=== PATIENT | male | born 1975 | race American Indian/Alaskan Native ===

== ENCOUNTER 2016-07-17 01:35 | Observation (INO) | payer MEDICAID ==
[2016-07-17] MEDS ORDERED: DiphenhydrAMINE 50 mg/ml Inj IM STA (02:08)
[2016-07-17] MEDS ORDERED: DiphenhydrAMINE 50 mg/ml Inj ONE (02:12)
--- NOTE | 2016-07-17 02:25 | C.PDOC ---
History Of Present Illness 41 year old patient brought to the ED by ambulance for acute alcohol intoxication. Patient admits to drinking alcohol today, is angry and agitated on ED arrival. Time Seen by Provider: 07/17/16 01:43 Chief Complaint (Nursing): Substance Abuse History Per: Patient, EMS History/Exam Limitations: intoxication Onset/Duration Of Symptoms: Unknown Current Symptoms Are (Timing): Still Present Suicide/Self Injury Attempted (Context): None Modifying Factor(s): Alcohol Severity: Moderate Past Medical History Reviewed: Historical Data, Nursing Documentation, Vital Signs Vital Signs: Last Vital Signs Temp 97.2 F L 07/17/16 01:54 Pulse 80 07/17/16 06:05 Resp 16 07/17/16 06:05 BP 112/77 07/17/16 06:05 Pulse Ox 98 07/17/16 06:05 - Medical History PMH: No Chronic Diseases Family History: States: No Known Family Hx - Social History Hx Alcohol Use: Yes Hx Substance Use: (unobtainable) - Immunization History Hx Tetanus Toxoid Vaccination: (unobtainable) Hx Influenza Vaccination: (unobtainable) Hx Pneumococcal Vaccination: (unobtainable) Review Of Systems Review Of Systems: ROS cannot be obtained secondary to pt's inabilty to answer questions. (agitated, intoxicated) Constitutional: Positive for: Other (alcohol intoxication) Physical Exam - Physical Exam Appears: Non-toxic, Unkempt, Combative, Agitated Skin: Normal Color, Warm, Dry Head: Normacephalic Eye(s): right: Normal Inspection, left: Other (left eye not present) Oral Mucosa: Moist Neck: Supple Cardiovascular: Rhythm Regular Respiratory: Normal Breath Sounds, No Rales, No Rhonchi, No Wheezing Gastrointestinal/Abdominal: Normal Exam, Bowel Sounds, Soft, No Tenderness Extremity: Normal ROM Neurological/Psych: Other (awake, alert, intoxicated, moving all 4 extremities spontaneously) ED Course And Treatment O2 Sat by Pulse Oximetry: 98 (room air) Pulse Ox Interpretation: Normal Progress Note: Patient initially placed in 4 point restraints due to agitation - continued to struggle against restraints, screaming at staff. IM Ativan Ativan, Benadryl and Haldol given. 3:50am- Patient arousable to verbal stimuli. Pending sobriety. Disposition - Disposition Disposition Time: 07:00 Condition: STABLE - Clinical Impression Clinical Impression: Alcohol intoxication - Scribe Statement The provider has reviewed the documentation as recorded by the Scribe Margarita Curry Provider Attestation: All medical record entries made by the Scribe were at my direction and personally dictated by me. I have reviewed the chart and agree that the record accurately reflects my personal performance of the history, physical exam, medical decision making, and the department course for this patient. I have also personally directed, reviewed, and agree with the discharge instructions and disposition. Physician Patient Turnover Patient Signed Over To: Noe Sheets DO Handoff Comments: pending sobriety, reassessment
[2016-07-17 11:02] VITALS: TEMP 97.8
[2016-07-17 15:30] VITALS: BP 130/65; PULSE 70; RESP 15; O2SAT 100
== END 2016-07-17 14:51 | disposition home or self-care (01) ==
LOC: C.ER 01:35 → C.9OBSV 02:08
PROVIDERS: ADMIT Emergency Medicine; ATTEND Emergency Medicine
DX: F10.129 Alcohol abuse with intoxication, unspecified (principal); Y90.9 Presence of alcohol in blood, level not specified
CPT/HCPCS: 82948; 96372; G0378; J1200; J1630; J2060

== ENCOUNTER 2016-10-12 20:09 | Observation (INO) | payer MEDICAID ==
[2016-10-12 20:30] VITALS: BMI 20.7
--- NOTE | 2016-10-12 20:49 | C.PDOC ---
History Of Present Illness 41 year old male brought to ER via EMS after a witness saw him fall and hit his head outside. Patient admits to drinking tonight and states he wants to leave because his house is unlocked. He denies loc; Hx is limited due to patient's intoxication. Time Seen by Provider: 10/12/16 20:11 Chief Complaint (Nursing): Substance Abuse History Per: Patient History/Exam Limitations: no limitations Onset/Duration Of Symptoms: Hrs Current Symptoms Are (Timing): Still Present Suicide/Self Injury Attempted (Context): None Modifying Factor(s): Alcohol Associated Symptoms: denies: Depression, Suicidal Thoughts, Suicidal Plan Involuntary Hold By: Emergency Physician Past Medical History Reviewed: Historical Data, Nursing Documentation, Vital Signs Vital Signs: Last Vital Signs Temp 98.0 F 10/13/16 06:34 Pulse 78 10/13/16 06:34 Resp 18 10/13/16 06:34 BP 109/81 10/13/16 06:34 Pulse Ox 100 10/13/16 06:34 - Medical History PMH: No Chronic Diseases Surgical History: No Surg Hx Family History: States: No Known Family Hx - Social History Hx Alcohol Use: Yes Hx Substance Use: (unobtainable) - Immunization History Hx Tetanus Toxoid Vaccination: (unobtainable) Hx Influenza Vaccination: (unobtainable) Hx Pneumococcal Vaccination: (unobtainable) Review Of Systems Except As Marked, All Systems Reviewed And Found Negative. Cardiovascular: Negative for: Chest Pain Respiratory: Negative for: Shortness of Breath Gastrointestinal: Negative for: Nausea, Vomiting, Abdominal Pain, Diarrhea Skin: Positive for: Other (Contusion) Psych: Positive for: Other (alcohol intoxication) Physical Exam - Physical Exam Appears: Well, Non-toxic, No Acute Distress, Other (Mildly intoxicated) Skin: Normal Color, Warm, Dry Head: Normacephalic, No Abrasion, No Laceration, Other (Contusion to occipital scalp) Eye(s): bilateral: Normal Inspection, PERRL, EOMI Oral Mucosa: Moist Neck: Normal, No Midline Cervical Tenderness, No Paracervical Tenderness, No Step Off Deformity, Supple Cardiovascular: Rhythm Regular, No Murmur Respiratory: Normal Breath Sounds, No Rales, No Rhonchi, No Wheezing Gastrointestinal/Abdominal: Normal Exam, Bowel Sounds, Soft, No Tenderness Extremity: Other (Right ankle in cast) Neurological/Psych: Other (awake, alert, intoxicated, moving all 4 extremities spotaneously) Gait: Unsteady ED Course And Treatment O2 Sat by Pulse Oximetry: 99 (Room air) Pulse Ox Interpretation: Normal - CT Scan/US ct head Other Rad Studies (CT/US): Read By Radiologist, Radiology Report Reviewed CT/US Interpretation: Name: VARUN PAGE Age: 41Years M Date: 10/12/2016. SSN: [id number] : 1975. Study: CT HEAD WO Requesting Physician: PAPI BARRAGAN. Images: 756. Addl Studies : Provided Clinical History: head injury r/o bleed. CONFIDENTIALITY STATEMENT. This transmission is confidential and is intended to be a privileged communication. It is intended only for the use of the addressee. Access to this. message by anyone else is unauthorized. If you are not the intended recipient, any disclosure, copying, distribution or any action taken, or omitted to. be taken in reliance on it is prohibited and may be unlawful. If you received this communication in error, please notify us by telephone, so that return. of this document to us can be arranged. Page 1 of 2. EXAM: CT Head Without Intravenous Contrast. CLINICAL HISTORY: 41 years old, male; Injury or trauma; Fall; Initial encounter; Blunt trauma (contusions or hematomas );. Additional info: Head injury R/O bleed. TECHNIQUE: Axial computed tomography images of the head/brain without intravenous contrast. All CT scans at. this facility use one or more dose reduction techniques, viz.: automated exposure control; ma/kV. adjustment per patient size (including targeted exams where dose is matched to indication; i.e. head);. or iterative reconstruction technique. Coronal and sagittal reformatted images were created and reviewed. COMPARISON: No relevant prior studies available. FINDINGS: Brain: Mild atrophy. No intracranial hemorrhage. No mass. No edema. Ventricles: Cavum septum pellucidum and vergae. No hydrocephalus. Bones/joints: No acute fracture. Soft tissues: Unremarkable. Sinuses: No acute sinusitis. Mastoid air cells: No mastoid effusion. Orbits: LEFT globe prosthesis. IMPRESSION: 1. No intracranial hemorrhage. [facility] [employer] [facility] [employer]. Final Radiology Report [id number]. Name: VARUN PAGE Age: 41Years M Date: 2016. SSN: [id number] : 1975. Study: CT HEAD WO Requesting Physician: PAPI BARRAGAN. Images: 756. Addl Studies: Provided Clinical History: head injury r/o bleed. CONFIDENTIALITY STATEMENT. This transmission is confidential and is intended to be a privileged communication. It is intended only for the use of the addressee. Access to this. message by anyone else is unauthorized. If you are not the intended recipient, any disclosure, copying, distribution or any action taken, or omitted to. be taken in reliance on it is prohibited and may be unlawful. If you received this communication in error, please notify us by telephone, so that return. of this document to us can be arranged. Page 2 of 2. 2. Incidental/non-acute findings are described above. Thank you for allowing us to participate in the care of your patient. Dictated and Authenticated by: Victorino Pham MD. 10/12/2016 9:43 PM Eastern Time ([place] & [place]) Progress Note: CT head ordered and reviewed. Patient placed in ED observation pending sobriety. Family called by nurse but they are unable to come pick him up from ED. 21:45- Patient is agitated and trying to elope, intoxicated. Will order IM Ativan and Haldol for agitation. 12:20am- Patient sleeping comfortably , arousable to verbal stimuli. Pending sobriety. 2:45am- Patient sleeping, arousable to verbal stimuli. Pending sobriety. 6:10am -Patient currently AAOx3 , ambulating normally with crutches. Patient clinically sober at this time, will discharge. Reassessment Condition: Improved ED OBSERVATION Date of observation admission: 10/12/16 Time of observation admission: 20:39 - Observation admission statement Patient is being placed in observation because:: Acute ETOH intoxication - Goals of Observation Goals of observation are:: Sobriety Disposition Counseled Patient/Family Regarding: Studies Performed, Diagnosis, Need For Followup - Disposition Disposition: HOME/ ROUTINE Disposition Time: 06:10 Condition: STABLE - POA Present On Arrival: Falls Or Trauma - Clinical Impression Clinical Impression: Alcohol intoxication, Closed head injury - Scribe Statement The provider has reviewed the documentation as recorded by the Scribmarvin Ro All medical record entries made by the Scribe were at my direction and personally dictated by me. I have reviewed the chart and agree that the record accurately reflects my personal performance of the history, physical exam, medical decision making, and the department course for this patient. I have also personally directed, reviewed, and agree with the discharge instructions and disposition.
--- NOTE | 2016-10-12 21:44 | CT ---
EXAM: CT Head Without Intravenous Contrast CLINICAL HISTORY: 41 years old, male; Injury or trauma; Fall; Initial encounter; Blunt trauma (contusions or hematomas); Additional info: Head injury R/O bleed TECHNIQUE: Axial computed tomography images of the head/brain without intravenous contrast. All CT scans at this facility use one or more dose reduction techniques, viz.: automated exposure control; ma/kV adjustment per patient size (including targeted exams where dose is matched to indication; i.e. head); or iterative reconstruction technique. Coronal and sagittal reformatted images were created and reviewed. COMPARISON: No relevant prior studies available. FINDINGS: Brain: Mild atrophy. No intracranial hemorrhage. No mass. No edema. Ventricles: Cavum septum pellucidum and vergae. No hydrocephalus. Bones/joints: No acute fracture. Soft tissues: Unremarkable. Sinuses: No acute sinusitis. Mastoid air cells: No mastoid effusion. Orbits: LEFT globe prosthesis. IMPRESSION: 1. No intracranial hemorrhage. 2. Incidental/non-acute findings are described above.
[2016-10-12] MEDS ORDERED: DiphenhydrAMINE 50 mg/ml Inj IM STA (22:36)
[2016-10-13 06:35] VITALS: BP 109/81; PULSE 78; RESP 18; TEMP 98
[2016-10-13 06:57] VITALS: O2SAT 99
== END 2016-10-13 06:11 | disposition home or self-care (01) ==
LOC: C.ER 20:09 → C.9OBSV 21:58
PROVIDERS: ADMIT Emergency Medicine; ATTEND Emergency Medicine
DX: F10.129 Alcohol abuse with intoxication, unspecified (principal); S09.90XA Unspecified injury of head, initial encounter; W19.XXXA Unspecified fall, initial encounter; Y92.89 Other specified places as the place of occurrence of the external cause
CPT/HCPCS: 70450; 82948; 96372; 99285; G0378